=== PATIENT | male | born 1960 | race Hispanic/Latino ===

== ENCOUNTER → 2024-04-09 | Outpatient (CLI) | payer OTHER | END | disposition home or self-care (01) | LOC: RAH 08:51 | PROVIDERS: ATTEND Orthopaedic Surgery | DX: M19.011 Primary osteoarthritis, right shoulder (principal); M25.811 Other specified joint disorders, right shoulder; M25.711 Osteophyte, right shoulder; M25.411 Effusion, right shoulder | CPT/HCPCS: 73221 ==